=== PATIENT | male | born 1970 | race Caucasian/White ===

== ENCOUNTER 2018-04-24 15:55 | Outpatient (CLI) | payer BC ==
--- NOTE | 2018-04-24 16:27 | RAD ---
CHEST TWO VIEWS: History: Cough. FINDINGS: Cardiac silhouette and pulmonary vasculature are unremarkable. Mediastinum is midline. No confluent a irspace consolidation, pneumothorax, or pleural fluid. IMPRESSION: No active cardiopulmonary abnormalities demonstrated. POS: [facility]
== END 2018-04-24 15:56 | disposition home or self-care (01) ==
LOC: SCSRAD 15:55
PROVIDERS: ATTEND Family Medicine
DX: R05 Cough (principal)
CPT/HCPCS: 71046